=== PATIENT | female | born 1940 | race Caucasian/White ===

== ENCOUNTER 2016-12-24 22:21 | Inpatient (IN) | payer MEDICARE, OTHER ==
[~2016-12-24] VITALS: Ht 162.6 cm; Wt 75.1 kg
[2016-12-25] MEDS ORDERED: ARICEPT10 MG PO (01:21)
[2016-12-25] MEDS ORDERED: LASIX TAB 20 MG20 MG PO (01:23)
[2016-12-25] MEDS ORDERED: SINGULAIR10 MG PO (01:23)
[2016-12-25] MEDS ORDERED: ZYRTEC10 M3 PO (01:24)
[2016-12-25] MEDS ORDERED: MELOXICAM7.5 MG PO (01:28)
[2016-12-25] MEDS ORDERED: METOPROLOL SUCC50 MG PO (01:29)
[2016-12-25] MEDS ORDERED: CRESTOR20 MG PO (01:30)
[2016-12-25] MEDS ORDERED: ALDACTONE 25MG25 MG PO (01:31)
[2016-12-25] MEDS ORDERED: VENTOLIN HFA 66.7 GM PO (01:33)
[2016-12-25 05:18] LABS: HEMOGLOBIN 10.5 gm/dl (12.3-15.3); RED BLOOD COUNT 3.69 M/UL (4.00-5.10)
[2016-12-26 05:38] LABS: HEMOGLOBIN 9.3 gm/dl (12.3-15.3); WHITE BLOOD COUNT 10.9 K/UL (4.5-11.0)
[2016-12-26 05:43] LABS: RED BLOOD COUNT 3.27 M/UL (4.00-5.10)
[2016-12-27 05:09] LABS: HEMOGLOBIN 8.3 gm/dl (12.3-15.3); WHITE BLOOD COUNT 11.2 K/UL (4.5-11.0)
[2016-12-27 05:10] LABS: RED BLOOD COUNT 2.94 M/UL (4.00-5.10)
[2016-12-28 04:36] LABS: RED BLOOD COUNT 2.81 M/UL (4.00-5.10); WHITE BLOOD COUNT 9.3 K/UL (4.5-11.0)
[2016-12-28 17:15] LABS: HEMOGLOBIN 8.3 gm/dl (12.3-15.3); RED BLOOD COUNT 2.94 M/UL (4.00-5.10)
[2016-12-29 04:32] LABS: HEMOGLOBIN 9.4 gm/dl (12.3-15.3); WHITE BLOOD COUNT 10.6 K/UL (4.5-11.0)
[2016-12-29 04:34] LABS: RED BLOOD COUNT 3.32 M/UL (4.00-5.10)
[2016-12-30 11:19] LABS: HEMOGLOBIN 10.3 gm/dl (12.3-15.3); RED BLOOD COUNT 3.65 M/UL (4.00-5.10); WHITE BLOOD COUNT 8.8 K/UL (4.5-11.0)
[2016-12-31 04:36] LABS: HEMOGLOBIN 9.4 gm/dl (12.3-15.3); RED BLOOD COUNT 3.31 M/UL (4.00-5.10); WHITE BLOOD COUNT 8.6 K/UL (4.5-11.0)
[2016-12-31 04:54] LABS: BUN/CREATININE RATIO 11 (0-10)
[2017-01-02 04:07] LABS: HEMOGLOBIN 9.1 gm/dl (12.3-15.3); RED BLOOD COUNT 3.21 M/UL (4.00-5.10); WHITE BLOOD COUNT 7.9 K/UL (4.5-11.0)
[2017-01-02] MEDS ORDERED: AMIODARONE HCL200 MG PO (11:31)
[2017-01-02] MEDS ORDERED: ELIQUIS 5 MG TAB5 MG PO (11:32)
[2017-01-02] MEDS ORDERED: COLACE 100MG C100 MG PO (11:34)
[2017-01-02] MEDS ORDERED: ARICEPT10 MG PO (11:35)
[2017-01-02] MEDS ORDERED: METOPROLOL TART50 MG PO (11:38)
[2017-01-02] MEDS ORDERED: MIRALAX17 GM PO (11:42)
[2017-01-02] MEDS ORDERED: CRESTOR20 MG PO (11:45)
[2017-01-02] MEDS ORDERED: NORCO 7.5-3251 EACH PO (11:52)
[2017-01-02] MEDS ORDERED: NITROFURANTOIN100 MG PO (12:17)
== END 2017-01-02 13:45 | DRG 470 ==
LOC: M/S 12-25 00:27 → CCU 12-30 16:16 → PROG CARE 01-01 13:14
PROVIDERS: Internal Medicine; Orthopaedic Surgery; ADMIT Internal Medicine
PROC: 0SRR0JZ Replacement of Right Hip Joint, Femoral Surface with Synthetic Substitute, Open Approach (ICD-10-PCS; principal; 2016-12-25 09:45)
PROC: 30233N1 Transfusion of Nonautologous Red Blood Cells into Peripheral Vein, Percutaneous Approach (ICD-10-PCS; 2016-12-28)
DX: S72.001A Fracture of unspecified part of neck of right femur, initial encounter for closed fracture (principal); I50.32 Chronic diastolic (congestive) heart failure; D62 Acute posthemorrhagic anemia; N39.0 Urinary tract infection, site not specified; E78.5 Hyperlipidemia, unspecified; J45.909 Unspecified asthma, uncomplicated; M81.0 Age-related osteoporosis without current pathological fracture; G30.9 Alzheimer's disease, unspecified; I11.0 Hypertensive heart disease with heart failure; F02.80 Dementia in other diseases classified elsewhere, unspecified severity, without behavioral disturbance, psychotic disturbance, mood disturbance, and anxiety; S80.01XA Contusion of right knee, initial encounter; R11.0 Nausea; I48.0 Paroxysmal atrial fibrillation; W10.9XXA Fall (on) (from) unspecified stairs and steps, initial encounter; Y92.019 Unspecified place in single-family (private) house as the place of occurrence of the external cause; Z91.81 History of falling
CPT/HCPCS: ECHO; 36415; 71010; 71020; 72192; 73501; 73502; 80048; 81001; 82550; 82553; 82962; 83735; 83880; 84484; 85027; 85610; 85730; 86850; 86900; 86901; 86920; 93005; 93306; 94640; 94664; 97110; 97116; 97530; 97535; C1776; G0008; J0690; J1650; J1885; J2270; J2405; J2710; J2795; J3010; J7030; J7120; P9016; Q2039